=== PATIENT | female | born 1935 | race Caucasian/White ===

== ENCOUNTER 2016-12-29 02:34 | Observation (INO) | payer MEDICARE, OTHER ==
[2016-12-29] VITALS (9 sets, daily range): BP systolic 137–191; BP diastolic 65–97; PULSE 68–79; RESP 17–19; TEMP 97.3; Ht 157.5 cm; Wt 76.3 kg
[~2016-12-29] VITALS: Ht 157.5 cm; Wt 76.3 kg
[2016-12-29 03:19] LABS: ADD SCAN DIFF NO
[2016-12-29 03:23] LABS: BASOPHIL # 0.1 10^3/ul (0.0-0.1); BASOPHILS % 0.6 % (0.0-2.0); EOSINOPHILS # 0.1 10^3/ul (0.0-0.5); EOSINOPHILS % 1.4 % (0.0-7.0); HEMATOCRIT 35.4 % (37.0-47.0); HEMOGLOBIN 11.4 g/dl (12.0-16.0); MEAN CORPUSCULAR HEMOGLOBIN 26.2 pg (29.0-33.0); MEAN CORPUSCULAR HGB CONC 32.2 g/dl (32.0-37.0); MEAN CORPUSCULAR VOLUME 81.4 fl (82.0-101.0); MEAN PLATELET VOLUME 9.7 fl (7.4-10.4); MONOCYTE # 0.7 10^3/ul (0.3-0.9); MONOCYTES % 7.5 % (0.0-11.0); NEUTROPHIL # 5.8 10^3/ul (1.6-7.5); NEUTROPHILS % 67.2 % (39.0-77.0); PLATELET COUNT 176 10^3/UL (140-415); RED BLOOD COUNT 4.35 10^6/ul (4.20-5.40); RED CELL DISTRIBUTION WIDTH 13.9 % (11.5-14.5); WHITE BLOOD COUNT 8.7 10^3/ul (4.8-10.8)
--- NOTE | 2016-12-29 03:26 | RADRPT ---
PROCEDURE: CHEST - 1 VIEW CLINICAL INDICATION: 81-year-old female with change in mental status. TECHNIQUE: A single frontal AP supine portable view of the chest was performed. The images were r eviewed on a PACS workstation. COMPARISON: None. FINDINGS: The cardiomediastinal silhouette is within normal limits. The thoracic aortic arch is calcified. C hronic lung changes are present. There is a shallow inspiration. There is mild bibasilar subsegmen renato atelectasis. There is no evidence for an infiltrate. There is no evidence for congestive heart failure. There is no evidence for pneumothorax. The osseous structures are intact. IMPRESSION: 1. Calcified thoracic aortic arch. 2. Chronic lung changes. 3. Shallow inspiration. 4. Mild bibasilar subsegmental atelectasis. .Frantz Weber MD, MD Date Time Electronically viewed and signed by .Frantz Weber MD, on 12/29/2016 03:26 .M/
[2016-12-29 03:38] LABS: INR 1.01; PROTIME 13.3 Sec (12.2-14.2)
[2016-12-29 03:39] LABS: PARTIAL THROMBOPLASTIN TIME 28.4 Sec (25.0-35.0)
[2016-12-29] MEDS ORDERED: IOHEXOL 300MG/ML 150 ML BTL ONE (03:39)
[2016-12-29] MEDS ORDERED: SOD CHLORIDE 0.9% 100 ML ONE (03:39)
[2016-12-29] MEDS ORDERED: IBUP-1542 PO (03:41)
[2016-12-29] MEDS ORDERED: LOSA25TA5 PO (03:41)
[2016-12-29] MEDS ORDERED: ATOR20TA38 PO (03:41)
[2016-12-29] MEDS ORDERED: BACL10TA PO (03:41)
[2016-12-29] MEDS ORDERED: METO-407 PO (03:41)
[2016-12-29] MEDS ORDERED: CLOP75TA4 PO (03:41)
[2016-12-29] MEDS ORDERED: OMEP20CA16 PO (03:41)
[2016-12-29] MEDS ORDERED: LORA10CA PO (03:41)
[2016-12-29] MEDS ORDERED: MONT10TA24 PO (03:41)
[2016-12-29 03:47] LABS: ANION GAP 14 (8-16); BLOOD UREA NITROGEN 29 mg/dl (7-20); CALCIUM 8.9 mg/dl (8.4-10.2); CARBON DIOXIDE 27 mmol/L (21-31); CHLORIDE 104 mmol/L (97-110); CREATININE 0.65 mg/dl (0.44-1.00); GLUCOSE 104 mg/dl (70-220); POTASSIUM 4.1 mmol/L (3.5-5.1); SODIUM 141 mmol/L (135-144)
--- NOTE | 2016-12-29 03:54 | ERA ---
ER Documentation Chief Complaint Date/Time DATE: 12/29/16 TIME: 03:54 Chief Complaint left arm heaviness since 0130, no pain, no injury HPI 81-year-old female with a history of hypertension presenting with left arm heaviness that started around 1:30 AM. Per her mojanyxk-ep-vyh, she also had slurred speech that seems to have resolved at this time. Patient denies any associated headache, vision disturbance, neck pain, paresthesias, or any other weakness. No recent fevers, chills, illnesses, chest pain, shortness of breath , or dysuria. Per EMS, her vitals were stable in the field. ROS All systems reviewed and are negative except as per history of present illness. Medications Home Meds Reported Medications Montelukast Sodium* (Montelukast Sodium*) 10 Mg Tablet, 10 MG PO QHS, #30 TAB 12/29/16 Clopidogrel Bisulfate* (Clopidogrel Bisulfate*) 75 Mg Tablet, 75 MG PO DAILY, # 30 TAB 12/29/16 Omeprazole* (Omeprazole*) 20 Mg Capsule.dr, 20 MG PO DAILY, #30 CAP 12/29/16 Atorvastatin Calcium* (Atorvastatin Calcium*) 20 Mg Tablet, 20 MG PO QHS, #30 TAB 12/29/16 Losartan Potassium* (Losartan Potassium*) 25 Mg Tablet, 25 MG PO DAILY, TAB 12/29/16 Loratadine* (Claritin*) 10 Mg Capsule, 10 MG PO DAILY, CAP 12/29/16 Ibuprofen* (Ibuprofen*) 600 Mg Tablet, 600 MG PO Q8, TAB 12/29/16 Metoprolol Tartrate* (Lopressor*) 100 Mg Tablet, 100 MG PO BID, #60 TAB 12/29/16 Baclofen* (Baclofen*) 10 Mg Tablet, 10 MG PO Q8, TAB 12/29/16 Allergies Allergies: Coded Allergies: No Known Allergy (Unverified , 12/29/16) PMhx/Soc Medical and Surgical Hx: pt denies Medical Hx History of Surgery: No Anesthesia Reaction: No Hx Neurological Disorder: No Hx Respiratory Disorders: No Hx Cardiac Disorders: No Hx Psychiatric Problems: No Hx Miscellaneous Medical Probl: Yes (Hypertension) Hx Alcohol Use: No Hx Substance Use: No Hx Tobacco Use: No Smoking Status: Never smoker FmHx Family History: No diabetes Physical Exam Vitals Vital Signs Date Time Temp Pulse Resp B/P Pulse Ox O2 Delivery O2 Flow Rate FiO2 12/29/16 02:41 97.3 77 20 130/71 98 Physical Exam Const: Well-appearing, no distress Head: Atraumatic Eyes: Normal Conjunctiva. Right pupil reactive to light, left pupil not reactive, remote injury to left eye as a child. ENT: Normal External Ears, Nose and Mouth. Neck: Full range of motion. No JVD.~ No meningismus. Resp: Clear to auscultation bilaterally Cardio: Regular rate and rhythm, no murmurs Abd: Soft, non tender, non distended. Normal bowel sounds Skin: No petechiae or rashes Back: No midline or flank tenderness Ext: No cyanosis, or edema Neuro: M/S: Alert and oriented Face: EOMI, face and pharynx with normal sensation and function Motor: Normal strength throughout Sensation: Normal sensation throughout Speech: Normal Cerebel: Normal coordination Normal gait Normal finger to nose DTR: 2+ and symmetric upper/lower extremities Psych: Normal Mood and Affect Result Diagram: 12/29/16 0304 12/29/16 0304 Results 24 hrs Laboratory Tests Test 12/29/16 03:04 12/29/16 03:37 White Blood Count 8.710^3/ul Red Blood Count 4.3510^6/ul Hemoglobin 11.4g/dl Hematocrit 35.4% Mean Corpuscular Volume 81.4fl Mean Corpuscular Hemoglobin 26.2pg Mean Corpuscular Hemoglobin Concent 32.2g/dl Red Cell Distribution Width 13.9% Platelet Count 27789^3/UL Mean Platelet Volume 9.7fl Neutrophils % 67.2% Lymphocytes % 23.0% Monocytes % 7.5% Eosinophils % 1.4% Basophils % 0.6% Nucleated Red Blood Cells % 0.0/100WBC Neutrophils # 5.810^3/ul Lymphocytes # 2.010^3/ul Monocytes # 0.710^3/ul Eosinophils # 0.110^3/ul Basophils # 0.110^3/ul Nucleated Red Blood Cells # 0.010^3/ul Prothrombin Time 13.3Sec Prothrombin Time Ratio 1.0 INR International Normalized Ratio 1.01 Activated Partial Thromboplast Time 28.4Sec Sodium Level 141mmol/L Potassium Level 4.1mmol/L Chloride Level 104mmol/L Carbon Dioxide Level 27mmol/L Anion Gap 14 Blood Urea Nitrogen 29mg/dl Creatinine 0.65mg/dl Glucose Level 104mg/dl Hemoglobin A1c 6.0% Calcium Level 8.9mg/dl Troponin I < 0.012ng/ml Bedside Glucose 108mg/dL Current Medications Medications (Trade) Dose Ordered Sig/Jace Route PRN Reason Start Time Stop Time Status Last Admin Dose Admin Sodium Chloride (NS) 100 ml @ ud STK-MED ONCE .ROUTE 12/29/16 03:39 12/29/16 03:40 DC Iohexol (Omnipaque 300mg/ ml) 150 ml STK-MED ONCE .ROUTE 12/29/16 03:39 12/29/16 03:40 DC Procedures/MDM EKG: Rate/Rhythm: Normal Sinus Rhythm QRS, ST, T-waves: No changes consistent w/ acute ischemia Impression: No evidence of ischemia or arrhythmia Labs: CBC, BMP, troponin without significant abnormality. Urinalysis pending. Imaging: Chest Xray: IMPRESSION: 1. Calcified thoracic aortic arch. 2. Chronic lung changes. 3. Shallow inspiration. 4. Mild bibasilar subsegmental atelectasis. .Frantz Weber MD, MD Date Time Electronically viewed and signed by .Frantz Weber MD, MD on 12/29/2016 03:26 CT head: IMPRESSION: 1. Mild diffuse atrophy. 2. Microangiopathic ischemic changes. 3. 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 4. Vascular calcifications. 5. Minimal mucosal thickening ethmoid air cells. .Frantz Weber MD, MD Date Time Electronically viewed and signed by .Frantz Weber MD, MD on 12/29/2016 04:06 CTA brain and neck: IMPRESSION: 1. Minimal calcific atherosclerotic disease within the carotid bifurcation regions without significant stenosis, occlusion or dissection. 2. origin of the left posterior cerebral artery otherwise unremarkable CTA the intracranial vasculature. .Frantz Weber MD, MD Date Time Electronically viewed and signed by .Frantz Weber MD, on 12/29/2016 04:39 MDM: Patient's neurologic symptoms are concerning for acute TIA/stroke, infectious, or metabolic cause and will require inpatient workup and continuous monitoring. Due to her rapidly improving symptoms, tele-neurology was not called and stroke was not activated. Further w/u for will be deferred to the inpatient team. Neuro Critical Care: Critical Care Time: 35 minutes Treatments/Evaluations: Continuous neurologic and cardiovascular monitoring for deterioration of neurologic function and complications, while obtaining immediate neurologic imaging. Considerations made for TPA and invasive therapy with discussions with family. TPA Criteria Assessment: Patient is not a TPA candidate because: Minimal or rapidly improving symptoms Departure Diagnosis: Primary Impression: TIA (transient ischemic attack) Qualified Code: G45.9 - Transient cerebral ischemia, unspecified type Condition: Serious CINDY BALDERRAMA MD Dec 29, 2016 03:54
[2016-12-29 04:02] LABS: TROPONIN-I < 0.012 ng/ml (0.00-0.12)
--- NOTE | 2016-12-29 04:06 | RADRPT ---
PROCEDURE: CT BRAIN WITHOUT CONTRAST CLINICAL INDICATION: 81-year-old female with left arm pain and paresthesias. TECHNIQUE: The study was performed utilizing [employer] VCT 64-slice CT scanner. Direct axial sections were obtained from the foramen magnum to the vertex without the use of intravenous contrast material. Sagittal and coronal reformations were obtained. One or more the following dose reduction techniques were utilized: automated exposure control, adjustment of the mA and/or kV according to p atient's size or use of iterative reconstruction technique. The images were viewed on a PACS worksta tion. CTD/vol = 42.7 mGy; Total Exam DLP = 120.2 mGy-cm. COMPARISON: None. FINDINGS: There is mild motion artifact is present. There is mild degree of diffuse cortical and central atro phy with compensatory ventricular enlargement. There is no evidence for mass effect or midline shif t. There are periventricular areas of decreased density consistent with microangiopathic ischemic c hanges. There is a small lacunar type infarct within the anterior limb of the right internal capsule . There is no evidence for acute intra or extra-axial blood. Calcifications are seen within the intr acranial carotid arteries bilaterally. The bony calvarium is intact. There is minimal mucosal thicke guille within the ethmoid air cells bilaterally. No air-fluid levels are noted. The mastoid air cell s are without significant soft tissue. A left sided hearing aid is noted. IMPRESSION: 1. Mild diffuse atrophy. 2. Microangiopathic ischemic changes. 3. 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 4. Vascular calcifications. 5. Minimal mucosal thickening ethmoid air cells. .Frantz Weber MD, Date Time Electronically viewed and signed by .Frantz Weber MD, on 12/29/2016 04:06 .M/
[2016-12-29] MEDS ORDERED: ACETAMINOPHEN 325 MG TAB PO PRN (04:30)
[2016-12-29] MEDS ORDERED: ONDANSETRON 4 MG INJ IV PRN (04:30)
--- NOTE | 2016-12-29 04:39 | RADRPT ---
PROCEDURE: CTA HEAD/NECK CLINICAL INDICATION: 81-year-old female with left arm pain and paresthesias. TECHNIQUE: The study was performed utilizing a [employer] VCT 64-slice CT scanner. Direct spira l axial sections were obtained through the neck with the use of 100 cc of Omnipaque-300 nonionic int ravenous contrast material. Coronal and sagittal as well as maximal intensity projection reformation s were obtained. One or more of the following dose reduction techniques were utilized: automated exp osure control, adjustment of the mA and/or kV according to patient's size or use of iterative recons truction technique. The images were reviewed on a PACS workstation. CTD/vol = 70.5 mGy; Total Exam D LP = 659.3 mGy-cm. COMPARISON: CT brain December 29, 2016. FINDINGS: The aortic arch is mildly calcified without aneurysmal dilatation or dissection. The origins of the great vessels are tortuous but intact. Evaluation of the carotid bifurcation regions reveals minimal calcific atherosclerotic disease without evidence for significant stenosis, occlusion or dissection . The vertebral arteries are patent bilaterally without significant stenosis, occlusion or dissectio n. Tortuosity seen within the distal right vertebral artery at the C2 level. There is a origin of the left posterior cerebral artery with a hypoplastic left P1 segment. T he [place] and vertebrobasilar system is without evidence for stenosis or occlusion. There is no evidence for an aneurysm or arteriovenous malformation. The superior sagittal and dural sinu ses are patent. IMPRESSION: 1. Minimal calcific atherosclerotic disease within the carotid bifurcation regions without signific ant stenosis, occlusion or dissection. 2. origin of the left posterior cerebral artery otherwise unremarkable CTA the intracranial v asculature. .Frantz Weber MD, Date Time Electronically viewed and signed by .Frantz Weber MD, on 12/29/2016 04:39 .M/
[2016-12-29] MEDS ORDERED: NACL 0.9% 3 ML SYG IV SCH (07:00)
--- NOTE | 2016-12-29 07:16 | HP ---
Date/Time of Note Date/Time of Note DATE: 12/29/16 TIME: 06:56 Assessment/Plan VTE Prophylaxis VTE Prophylaxis Intervention: SCD's Lines/Catheters IV [facility] Saline Lock Assessment/Plan Chief Complaint/Hosp Course This is an 81-year-old female being admitted to telemetry floor for: #1 Left upper extremity weakness: Rule out TIA. Patient states that her symptoms of heaviness have been improving since she has come to the hospital. At the current time she has no other focal deficits on her neurological exam. CT scan of the head did not show any acute abnormalities. Possible old lacunar infarct. Will obtain an MRI of the brain and carotid ultrasound. Will consult neurology and defer further imaging studies to them.. She is already on a statin. Patient is also on Plavix. Neuro checks every 4 hours. #2 questionable history of coronary artery disease: Patient denies any cardiac history however based on her medication reconciliation it does seem like patient may have underlying coronary artery disease. We will get a echocardiogram. Patient also has a systolic murmur which radiates to the right carotid artery. Will try to reconfirm of the patient #3 questionable history of hypertension: Patient denied any history of any hypertension however based on her medication reconciliation she possibly has underlying hypertension. Again will try to confirm this with the patient. #4 dyslipidemia: Patient is currently on a statin. #5 arthritis: Stable we will hold ibuprofen for now. #6 DVT and GI prophylaxis: SCDs, famotidine per Further treatment strategy will be implemented as per the clinical course. Will attempt to reconfirm patient's possible medical history based on her medication reconciliation. Problems: HPI/ROS Admit Date/Time Admit Date/Time Dec 29, 2016 at 04:16 Hx of Present Illness Chief complaint: Left-sided heaviness of the upper extremity 81-year-old female with a history of hypertension presenting with left arm heaviness that started around 1:30 AM. Per her jsqvzkzl-ce-zeq, she also had slurred speech that seems to have resolved at this time. Patient denies any associated headache, vision disturbance, neck pain, paresthesias, or any other weakness. No recent fevers, chills, illnesses, chest pain, shortness of breath , or dysuria. Per EMS, her vitals were stable in the field. Allergies: NKDA Medications: None ROS Const: Negative for fever, chills, weight gain or weight loss, fatigue, or diaphoresis Eyes : No pain discharge or redness or change in visual acuity ENT: No pain, sore throat, congestion, congestion, dysphagia or discharge Respiratory: No shortness of breath, cough, sputum, wheezing, or pleuritic pain Cardiovascular: No chest pain, palpitation, PND, or edema GI : no change in appetite, abdominal pain, nausea, vomiting, diarrhea, constipation, or change in the color his stool Genitourinary: No dysuria, hematuria, flank pain , discharge or CVA tenderness Musculoskeletal: As per HPI Skin: No rash, bruising or hives Neuro: As per HPI Endocrine: No polyuria, polydipsia, temperature intolerance Psych: No hallucination, depression, anxiety or suicidal ideation PMH/Family/Social Past Medical History Arthritis, patient denies any other past medical history however on her med rec there do appear to be medications that indicate she may have underlying heart failure versus hypertension and a possible stent in the past. We will try to confirm the patient again. Past Surgical History Past Surgical Hx: no surgical history Family History Significant Family History: cancer Social History Alcohol Use: none Smoking Status: Never smoker Drug Use: none Exam/Review of Systems Vital Signs Vitals Vital Signs Date Time Temp Pulse Resp B/P Pulse Ox O2 Delivery O2 Flow Rate FiO2 12/29/16 05:28 75 12/29/16 05:03 97.8 18 137/75 96 Room Air Exam Exam General: Patient is well-developed well-nourished The patient is alert oriented -3 lying comfortably in bed. HEENT: Atraumatic, normocephalic. The pupils are equal, round and reactive. Extraocular motor are intact Neck: Supple with full range of motion. No rigidity or meningismus Chest: Nontender Lungs: Clear to auscultation bilaterally no crackles rales or wheezing Heart: Normal S1-S2, systolic murmur at the right intercostal space with radiation to the carotid. Abdomen: Soft , nontender, nondistended , bowel sounds are present. No guarding no rebound tenderness , No masses or organomegaly. No costovertebral temporal angle mass Extremities: Normal to inspection, no edema no cyanosis Neurologic: Cranial nerves II through XII intact, normal mental status. Strength is 5 out of 5 in bilateral upper and lower extremities. However when asked when patient is asked to lift up her left arm she states that he feels weak and heavy and it ends up falling slowly. Additional Comments EKG: Rate/Rhythm: Normal Sinus Rhythm QRS, ST, T-waves: No changes consistent w/ acute ischemia As per ED physician documentation Imaging: Chest Xray: IMPRESSION: 1. Calcified thoracic aortic arch. 2. Chronic lung changes. 3. Shallow inspiration. 4. Mild bibasilar subsegmental atelectasis. .Frantz Weber MD, Date Time Electronically viewed and signed by .Frantz Weber MD, on 12/29/2016 03:26 CT head: IMPRESSION: 1. Mild diffuse atrophy. 2. Microangiopathic ischemic changes. 3. 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 4. Vascular calcifications. 5. Minimal mucosal thickening ethmoid air cells. .Frantz Weber MD, Date Time Electronically viewed and signed by .Frantz Weber MD, MD on 12/29/2016 04:06 CTA brain and neck: IMPRESSION: 1. Minimal calcific atherosclerotic disease within the carotid bifurcation regions without significant stenosis, occlusion or dissection. 2. origin of the left posterior cerebral artery otherwise unremarkable CTA the intracranial vasculature. .Frantz Weber MD, Date Time Electronically viewed and signed by .Frantz Weber MD, on 12/29/2016 04:39 Labs Result Diagram: 12/29/16 0304 12/29/16 0304 WILMER VILLEGAS Dec 29, 2016 07:07
[2016-12-29] MEDS ORDERED: METOPROLOL 100 MG TAB PO SCH (09:00)
[2016-12-29] MEDS ORDERED: CLOPIDOGREL 75 MG TAB PO SCH (09:00)
[2016-12-29] MEDS ORDERED: LORATADINE 10 MG TAB PO SCH (09:00)
[2016-12-29] MEDS ORDERED: LOSARTAN 25 MG TAB PO SCH (09:00)
[2016-12-29] MEDS ORDERED: FAMOTIDINE 20 MG TAB PO SCH (09:00)
--- NOTE | 2016-12-29 10:20 | RADRPT ---
PROCEDURE: MRI Brain without contrast. CLINICAL INDICATION: Left arm weakness/heaviness TECHNIQUE: Multiplanar MRI of the brain without contrast was performed on a 3.0 T scanner with the following sequences obtained: T1-weighted, T2-weighted/FLAIR, diffusion weighted (with ADC map), GR E. COMPARISON: CT brain 12/29/2016 FINDINGS: There is a small focus of restricted diffusion centered in the posterior frontal lobe along the prec entral gyrus compatible with an acute infarct. No intracranial hemorrhage - blood degradation produ cts are identified. No extra-axial fluid collection is seen. There is no mass effect. No midline shift is identified. The ventricles and sulci are mildly enlarged, compatible with generalized volume loss. Mild areas of increased T2 / FLAIR signal intensity are present in the periventricular and deep whit e matter, nonspecific but likely related to chronic small vessel ischemic changes. Flow voids are identified in the proximal intracranial arteries and dural sinuses suggesting patency . The mastoid air cells and paranasal sinuses are grossly clear. IMPRESSION: 1. Small acute right frontal infarct. 2. Mild generalized volume loss, with mild chronic small vessel ischemic changes. Results called to Dank Marr RN on 12/29/2016 10:18 AM. RPTAT: AA .Alvin Garcia MD, Date Time Electronically viewed and signed by .Alvin Garcia MD, on 12/29/2016 10:20 .O/
--- NOTE | 2016-12-29 12:11 | RADRPT ---
Echocardiogram Report Patient Name: SAUL BOWERS Gender: Female Date: 1935 Study Date: 29-Dec-2016 Axle Turner: Malachi Mills [facility] Location: [id number] Ref. Physician: WILMER VILLEGAS Quality: Good Procedures: Transthoracic echocardiogram with complete 2D, M-Mode, and doppler examination. Indications: Systolic Murmur. r/o Transient Ischemic Attack. 2D/M Mode Doppler Measurement Value Normal Ranges Measurement Value Normal Ranges LVIDd 2D 3.6 3.5 - 5.6 cm SHANON Vmax 1.3 cm2 LVIDs 2D 2.4 2.1 - 4.1 cm SHANON VTI 1.3 cm2 FS 2D 33.8 % AV Mean Ron 1.6 m/sec LVPWd 2D 1.0 0.6 - 1.1 cm AV Mean PG 13.0 mmHg IVSd 2D 1.1 0.6 - 1.1 cm AV Peak Ron 2.4 m/sec IVS/LVPW 2D 1.1 AV Peak PG 24.0 mmHg AoR Diam 2D 2.9 2.0 - 3.7 cm AV VTI 62.1 cm LA/Ao 2D 1 0 - 1 LVOT Mean Ron 0.6 m/sec EDV 2D 45.9 cm3 LVOT Mean PG 2.0 mmHg ESV 2D 13.3 cm3 LVOT Peak Ron 0.9 m/sec LA Dimen 2D 3.9 2.3 - 4.0 cm LVOT Peak PG 3.0 mmHg LVOT Diam 2.1 cm LVOT VTI 23.1 cm LVOT Area 3.5 cm2 MV E Peak Ron 0.8 m/sec MV A Peak Ron 1.2 m/sec MV E/A 0.6 MV Decel Time 296 msec MV E/A 0.6 TR Peak Ron 2.6 m/sec RVSP 35.0 mmHg Findings Left Ventricle: Normal left ventricular systolic function. Normal left ventricular cavity size. Mild concentric left ventricular hypertrophy. Ejection fraction is visually estimated at 65 %. Tissue Doppler/Mitral Doppler indices are consistent with impaired relaxation (Stage I diastolic dysfunction). Right Ventricle: Normal right ventricular size. Normal right ventricular systolic function. Left Atrium: There is mild enlargement of left atrium. Right Atrium: The right atrium is normal in size. Mitral Valve: Mild mitral leaflet calcification. Mild mitral annular calcification. Mild mitral valve regurgitation. Aortic Valve: Mild aortic stenosis. Aortic valve Max velocity 2.44 m/sec. Max PG 24.00 mmHg. Mean PG 13.00 mmHg. Aortic valve area 1.3 cm2. Aortic cusps appear moderately calcified. No aortic regurgitation. Tricuspid Valve: Normal appearance of the tricuspid valve. Estimated peak PA systolic pressure 35 mmHg. There is mild tricuspid regurgitation. Pulmonic Valve: Pulmonic valve not well visualized. Pericardium: Normal pericardium with no significant pericardial effusion. Aorta: Normal aortic root. IVC: Normal size and no respiratory collapse consistent with elevated right atrial pressure. Conclusions 1.Normal left ventricular systolic function. Normal left ventricular cavity size. Mild concentric left ventricular hypertrophy. Ejection fraction is visually estimated at 65 %. Tissue Doppler/Mitral Doppler indices are consistent with impaired relaxation (Stage I diastolic dysfunction). 2.Mild aortic stenosis. Aortic valve Max velocity 2.44 m/sec. Max PG 24.00 mmHg. Mean PG 13.00 mmHg. Aortic valve area 1.3 cm2. Aortic cusps appear moderately calcified. No aortic regurgitation. 3.Estimated peak PA systolic pressure 35 mmHg based on RA pressure of 8 mmHg. Electronically Signed By: Earnest Jurado 29-Dec-2016 12:10:40 -2400 Patient Name: SAUL BOWERS Study Date: 29-Dec-[id number]
--- NOTE | 2016-12-29 15:02 | CONS ---
Date/Time of Note Date/Time of Note DATE: 12/29/16 TIME: 14:54 Assessment/Plan Assessment/Plan Chief Complaint/Hosp Course Left arm heaviness and slurring of speech Problems: Additional Assessment/Plan Patient exam 81-year-old female with a history of hypertension admitted with left arm heaviness. She also had slurred speech that seems to have resolved at this time. Patient denies any associated headache, vision disturbance, neck pain, paresthesias, or any other weakness. Her symptoms of left arm heaviness has resolved. 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 CT angiogram of the brain showed a narrow left posterior cerebral artery. MRI of the brain showed a small acute infarct in the right frontal region. Plan 1 neuro check every 4 hours 2 OT/PT/speech evaluation 3 echocardiogram 4 continue Plavix and atorvastatin 5 we will follow Consultation Date/Type/Reason Admit Date/Time Dec 29, 2016 at 04:16 Date of Consultation: Dec 29, 2016 Reason for Consultation Left arm heaviness Referring Provider: WILMER VILLEGAS Hx of Present Illness Patient exam 81-year-old female with a history of hypertension admitted with left arm heaviness. She also had slurred speech that seems to have resolved at this time. Patient denies any associated headache, vision disturbance, neck pain, paresthesias, or any other weakness. Her symptoms of left arm heaviness has resolved. 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 CT angiogram of the brain showed a narrow left posterior cerebral artery. MRI of the brain showed a small acute infarct in the right frontal region. Past Surgical History Past Surgical Hx: no surgical history Social History Alcohol Use: none Smoking Status: Never smoker Drug Use: none Exam/Review of Systems Vital Signs Vitals Vital Signs Date Time Temp Pulse Resp B/P Pulse Ox O2 Delivery O2 Flow Rate FiO2 12/29/16 12:07 70 12/29/16 11:39 97.9 19 142/65 94 12/29/16 05:03 Room Air Exam Constitutional: alert, well developed Psych: nl mood/affect, no complaints Head: atraumatic, normocephalic Eyes: EOMI, nl conjunctiva, nl lids, nl sclera ENMT: mucosa pink and moist, nl external ears & nose, nl lips & teeth, nl nasal mucosa & septum Neck: non-tender, supple Respiratory: clear to auscultation, normal air movement Cardiovascular: nl pulses, regular rate and rhythm Gastrointestinal: nl liver, spleen, soft Extremities: normal pulses Neurological: DTR's symmetric, nl mental status, nl speech, nl strength, other Skin: nl turgor, rash or lesions Lymph: nl lymph nodes Results Result Diagram: 12/29/16 0304 12/29/16 0304 Results 24 hrs Laboratory Tests Test 12/29/16 03:04 12/29/16 03:37 White Blood Count 8.7 Red Blood Count 4.35 Hemoglobin 11.4 L Hematocrit 35.4 L Mean Corpuscular Volume 81.4 L Mean Corpuscular Hemoglobin 26.2 L Mean Corpuscular Hemoglobin Concent 32.2 Red Cell Distribution Width 13.9 Platelet Count 176 Mean Platelet Volume 9.7 Neutrophils % 67.2 Lymphocytes % 23.0 Monocytes % 7.5 Eosinophils % 1.4 Basophils % 0.6 Nucleated Red Blood Cells % 0.0 Neutrophils # 5.8 Lymphocytes # 2.0 Monocytes # 0.7 Eosinophils # 0.1 Basophils # 0.1 Nucleated Red Blood Cells # 0.0 Prothrombin Time 13.3 Prothrombin Time Ratio 1.0 INR International Normalized Ratio 1.01 Activated Partial Thromboplast Time 28.4 Sodium Level 141 Potassium Level 4.1 Chloride Level 104 Carbon Dioxide Level 27 Anion Gap 14 Blood Urea Nitrogen 29 H Creatinine 0.65 Glucose Level 104 Hemoglobin A1c 6.0 H Calcium Level 8.9 Troponin I < 0.012 Bedside Glucose 108 Medications Medications Current Medications Famotidine (Pepcid) 20 mg Q12 PO Last administered on 12/29/16 08:35; Admin Dose 20 MG; Start 12/29/16 at 09:00 Atorvastatin Calcium (Lipitor) 20 mg QHS PO ; Start 12/29/16 at 21:00 Clopidogrel Bisulfate (plaVIX) 75 mg DAILY PO Last administered on 12/29/16 08: 35; Admin Dose 75 MG; Start 12/29/16 at 09:00 Loratadine (Claritin) 10 mg DAILY PO Last administered on 12/29/16 08:36; Admin Dose 10 MG; Start 12/29/16 at 09:00 Losartan Potassium (Cozaar) 25 mg DAILY PO Last administered on 12/29/16 08:36 ; Admin Dose 25 MG; Start 12/29/16 at 09:00 Metoprolol Tartrate (Lopressor) 100 mg BID PO Last administered on 12/29/16t 08: 37; Admin Dose 100 MG; Start 12/29/16 at 09:00 Montelukast Sodium (Singulair) 10 mg QHS PO ; Start 12/29/16 at 21:[address] scan of the brain 12/28/2016 IMPRESSION: 1. Mild diffuse atrophy. 2. Microangiopathic ischemic changes. 3. 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 4. Vascular calcifications. 5. Minimal mucosal thickening ethmoid air cells. .Frantz Weber MD, Date Time Electronically viewed and signed by .Frantz Weber MD, MD on 12/29/2016 04:06 CT angiogram of the brain 12/28/2016 IMPRESSION: 1. Minimal calcific atherosclerotic disease within the carotid bifurcation regions without significant stenosis, occlusion or dissection. 2. origin of the left posterior cerebral artery otherwise unremarkable CTA the intracranial vasculature. .Frantz Weber MD, Date Time Electronically viewed and signed by .Frantz Weber MD, MD on 12/29/2016 04:39 MRI of the brain 12/29/2016 IMPRESSION: 1. Small acute right frontal infarct. 2. Mild generalized volume loss, with mild chronic small vessel ischemic changes. Results called to Dank Marr RN on 12/29/2016 10:18 AM. RPTAT: AA .Alvin aGrcia MD, Date Time Electronically viewed and signed by .Alvin Garcia MD, MD on 12/29/2016 10:20 PATSY DORADO MD Dec 29, 2016 15:02
[2016-12-29] MEDS ORDERED: ACETAMINOPHEN 500 MG TAB PO PRN (16:00)
--- NOTE | 2016-12-29 16:10 | RADRPT ---
PROCEDURE: US Carotids. CLINICAL INDICATION: bruit , left sided weakness. TECHNIQUE: Multiple sonographic of the carotid bifurcation region and vertebral arteries were obta ined utilizing franks scale, duplex and color-flow imaging. The images were reviewed on a PACS worksta tion. COMPARISON: No prior studies are available for comparison. FINDINGS: Evaluation of the right carotid bifurcation region reveals mild calcific atherosclerotic disease. Evaluation of the left carotid bifurcation region reveals no significant calcific atherosclerotic di sease. There is antegrade flow within the vertebral arteries bilaterally. RIGHT CAROTID MEASUREMENTS: Common Carotid Acnovf31.2 (cm/sec) Internal Carotid Artery - jodncwjm65 (cm/sec) Internal Carotid Artery - mid50 (cm/sec) Internal Carotid Artery - vyfrwt30.7 (cm/sec) Internal Carotid/Common Carotid0.93 LEFT CAROTID MEASUREMENTS: Common Carotid Wtusgp22.2 (cm/sec) Internal Carotid Artery - brkrjlun47.8 (cm/sec) Internal Carotid Artery - mid66 (cm/sec) Internal Carotid Artery - ngegdd59.4 (cm/sec) Internal Carotid/Common Carotid1.27 RPTAT: AA IMPRESSION: No evidence for hemodynamically significant stenosis in the bilateral internal carotid arteries - va lidated velocity measurements with angiographic measurements, velocity criteria are extrapolated fro m diameter data as defined by the Society of Radiologists in Ultrasound Consensus Conference Radiolo gy 2003; 229;340-346. This study does indirectly reference the measurement of the distal ICA diamet er as the denominator for stenosis measurement. Normal antegrade flow in the vertebral arteries bilaterally. .Vinny Herron MD, MD Date Time Electronically viewed and signed by .Vinny Herron MD, on 12/29/2016 16:10 .S/
--- NOTE | 2016-12-29 17:28 | DS ---
Date/Time of Note Date/Time of Note DATE: 12/29/16 TIME: 17:22 Discharge Summary Admission/Discharge Info Admit Date/Time Dec 29, 2016 at 04:16 Discharge Date/Time Dec 29, 2016 at 17:03 (LEFT AGAINST MEDICAL ADVICE) Final Diagnosis 1. Small acute right frontal infarct. 2. Questionable history of CAD based on medications. 3. Essential hypertension. 4. Arthritis. 5. Dyslipidemia 6. Noncompliance. Consults Malachi Kuo, Neurology. Hx of Present Illness Chief complaint: Left-sided heaviness of the upper extremity 81-year-old female with a history of hypertension presenting with left arm heaviness that started around 1:30 AM. Per her [id number], she also had slurred speech that seems to have resolved at this time. Patient denies any associated headache, vision disturbance, neck pain, paresthesias, or any other weakness. No recent fevers, chills, illnesses, chest pain, shortness of breath , or dysuria. Per EMS, her vitals were stable in the field. Allergies: NKDA Medications: None Hospital Course The patient was admitted to inpatient telemetry floor. A neurology consult was called. The patient was maintained on Plavix. Neurochecks were ordered every 4 hours. Neurology consult was obtained. The patient's brain MRI showed a small acute right frontal infarct. Neurology recommended to continue the patient on antiplatelet therapy and statins. Physical therapy, occupational therapy, and speech therapy was ordered. A 2D echocardiogram was ordered. The patient underwent a head CTA that showed minimal calcific atherosclerotic sclerotic disease within the carotid bifurcation regions without any significant stenosis, occlusion, or dissection. She was also noticed to have borderline elevated hemoglobin A1c of 6.0. The patient has been noncompliant with nursing instructions including wearing the registered nurse cardiac telemetry on and taking vital signs. Neurology evaluated the patient and recommended neuro checks every 4 hours. The patient has been refusing these too. Finally, the patient wanted to leave the hospital AGAINST MEDICAL ADVICE. The patient was instructed about the consequences of leaving the hospital AGAINST MEDICAL ADVICE including the possibility of . Nevertheless, the patient wanted to leave the hospital AGAINST MEDICAL ADVICE and the patient signed the AMA form. The case was discussed with Dr. Hamm. Home Meds Reported Medications Montelukast Sodium* (Montelukast Sodium*) 10 Mg Tablet, 10 MG PO QHS, #30 TAB 12/29/16 Clopidogrel Bisulfate* (Clopidogrel Bisulfate*) 75 Mg Tablet, 75 MG PO DAILY, # 30 TAB 12/29/16 Omeprazole* (Omeprazole*) 20 Mg Capsule.dr, 20 MG PO DAILY, #30 CAP 12/29/16 Atorvastatin Calcium* (Atorvastatin Calcium*) 20 Mg Tablet, 20 MG PO QHS, #30 TAB 12/29/16 Losartan Potassium* (Losartan Potassium*) 25 Mg Tablet, 25 MG PO DAILY, TAB 12/29/16 Loratadine* (Claritin*) 10 Mg Capsule, 10 MG PO DAILY, CAP 12/29/16 Ibuprofen* (Ibuprofen*) 600 Mg Tablet, 600 MG PO Q8, TAB 12/29/16 Metoprolol Tartrate* (Lopressor*) 100 Mg Tablet, 100 MG PO BID, #60 TAB 12/29/16 Baclofen* (Baclofen*) 10 Mg Tablet, 10 MG PO Q8, TAB 12/29/16 Follow-up Plan No follow-up plan was provided since the patient left the hospital AGAINST MEDICAL ADVICE. Primary Care Provider Not On Staff Doctor Time spent on discharge: < 30 minutes Pending Labs Brain CT Scan IMPRESSION: 1. Mild diffuse atrophy. 2. Microangiopathic ischemic changes. 3. 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 4. Vascular calcifications. 5. Minimal mucosal thickening ethmoid air cells. Brain MRI IMPRESSION: 1. Small acute right frontal infarct. 2. Mild generalized volume loss, with mild chronic small vessel ischemic changes. Laboratory Tests Test 12/29/16 03:04 12/29/16 03:37 White Blood Count 8.710^3/ul (4.8-10.8) Red Blood Count 4.3510^6/ul (4.20-5.40) Hemoglobin 11.4g/dl (12.0-16.0) Hematocrit 35.4% (37.0-47.0) Mean Corpuscular Volume 81.4fl (82.0-101.0) Mean Corpuscular Hemoglobin 26.2pg (29.0-33.0) Mean Corpuscular Hemoglobin Concent 32.2g/dl (32.0-37.0) Red Cell Distribution Width 13.9% (11.5-14.5) Platelet Count 67932^3/UL (140-415) Mean Platelet Volume 9.7fl (7.4-10.4) Neutrophils % 67.2% (39.0-77.0) Lymphocytes % 23.0% (15.0-51.0) Monocytes % 7.5% (0.0-11.0) Eosinophils % 1.4% (0.0-7.0) Basophils % 0.6% (0.0-2.0) Nucleated Red Blood Cells % 0.0/100WBC (0.0-0.0) Neutrophils # 5.810^3/ul (1.6-7.5) Lymphocytes # 2.010^3/ul (0.8-2.9) Monocytes # 0.710^3/ul (0.3-0.9) Eosinophils # 0.110^3/ul (0.0-0.5) Basophils # 0.110^3/ul (0.0-0.1) Nucleated Red Blood Cells # 0.010^3/ul (0.0-0.0) Prothrombin Time 13.3Sec (12.2-14.2) Prothrombin Time Ratio 1.0 INR International Normalized Ratio 1.01 Activated Partial Thromboplast Time 28.4Sec (25.0-35.0) Sodium Level 141mmol/L (135-144) Potassium Level 4.1mmol/L (3.5-5.1) Chloride Level 104mmol/L (97-110) Carbon Dioxide Level 27mmol/L (21-31) Anion Gap 14 (8-16) Blood Urea Nitrogen 29mg/dl (7-20) Creatinine 0.65mg/dl (0.44-1.00) Glucose Level 104mg/dl (70-220) Hemoglobin A1c 6.0% (0-5.9) Calcium Level 8.9mg/dl (8.4-10.2) Troponin I < 0.012ng/ml (0.00-0.12) Bedside Glucose 108mg/dL (70-220) CATARINA SERRANO NP Dec 29, 2016 17:28
[2016-12-29] MEDS ORDERED: ATORVASTATIN 20 MG TAB PO SCH (21:00)
[2016-12-29] MEDS ORDERED: MONTELUKAST 10 MG TAB PO SCH (21:00)
== END 2016-12-29 17:03 | disposition home or self-care (01) ==
LOC: E/R 02:34 → MS4 04:16 → INTOOBSV 04:16
PROVIDERS: ADMIT Family Medicine; ATTEND Family Medicine
DX: I63.9 Cerebral infarction, unspecified (principal); I10 Essential (primary) hypertension; M19.90 Unspecified osteoarthritis, unspecified site; E78.5 Hyperlipidemia, unspecified; Z91.19 Patient's noncompliance with other medical treatment and regimen
CPT/HCPCS: 36415; 70450; 70496; 70498; 70551; 71010; 80048; 82962; 83036; 84484; 85025; 85610; 85730; 93005; 93306; 93880; 99291; G0378; Q9967; 99217